=== PATIENT | female | born 1945 | race Caucasian/White ===

== ENCOUNTER 2022-07-18 13:11 | Observation (INO) ==
[2022-07-18] MEDS ORDERED: Tdap (Boostrix) Vaccine 0.5 ML SYRINGE IM ONE (13:40)
[2022-07-18] MEDS ORDERED: *HR* FentaNYL (PF) 100 MCG/2 ML VIAL IVP ONE ×2 (13:49→16:36)
[2022-07-18] MEDS ORDERED: Ondansetron 4 MG/2 ML VIAL IVP ONE ×3 (13:49→16:36)
[2022-07-18] MEDS: 0.9 % Sodium Chloride 1,000 ML IVC SCH ×2 (14:11→20:25)
[2022-07-18] MEDS ORDERED: hydroCHLOROthiazide 25 MG TABLET PO ONE (15:00)
[2022-07-18 15:59] LABS: Basophils # 0.1 K/mcL (0.0-0.2); Basophils % 1.4 %; Eosinophils # 0.2 K/mcL (0.0-0.6); Eosinophils % 2.5 %; Hematocrit 38.5 % (35.3-44.9); Hemoglobin 13.1 g/dL (11.5-15.4); Immature Granulocytes % 0.3 % (0-4); Lymphocytes # 2.2 K/mcL (0.6-4.6); Lymphocytes % 30.1 %; Mean Corpuscular Hemoglobin 29.4 pg (28.0-33.3); Mean Corpuscular Volume 86.3 fL (83.0-100.0); Mean Platelet Volume 10.3 fL (9.4-12.4); Monocytes # 0.5 K/mcL (0.0-1.3); Monocytes % 6.2 %; Neutrophils # 4.3 K/mcL (1.6-8.9); Platelet Count 234 K/mcL (140-400); Red Blood Count 4.46 M/mcL (3.82-4.97); Red Cell Distribution Width 12.7 % (11.5-14.5); Segmented Neutrophils % 59.5 %; White Blood Count 7.2 K/mcL (4.3-11.1)
[2022-07-18 16:08] LABS: Calcium 9.7 mg/dL (8.6-10.3); Potassium 3.8 mEq/L (3.5-5.1)
[2022-07-18 16:29] LABS: Magnesium 1.6 mg/dL (1.6-2.6)
[2022-07-18 16:42] LABS: Thyroid Stimulating Hormone 2.982 mcIU/mL (0.340-5.600)
[2022-07-18] MEDS ORDERED: Naloxone 0.4 MG/ML INJ IVP PRN (18:06)
[2022-07-18] MEDS ORDERED: *HR* LORazepam 2 MG/ML VIAL IVP ONE (18:31)
[2022-07-18] MEDS: Pantoprazole 40 MG VIAL IVP SCH (19:36)
[2022-07-18] MEDS ORDERED: Ondansetron 4 MG/2 ML VIAL IVP PRN (21:20)
[2022-07-19] MEDS: 0.9 % Sodium Chloride 1,000 ML IVC SCH ×2 (05:46→14:59)
[2022-07-19 06:03] LABS: Basophils # 0.1 K/mcL (0.0-0.2); Basophils % 0.5 %; Eosinophils % 0.2 %; Hemoglobin 12.1 g/dL (11.5-15.4); Immature Granulocytes % 0.4 % (0-4); Lymphocytes # 1.5 K/mcL (0.6-4.6); Lymphocytes % 14.9 %; Mean Corpuscular HGB Conc 33.6 g/dL (31.6-35.5); Mean Corpuscular Hemoglobin 29.4 pg (28.0-33.3); Mean Corpuscular Volume 87.6 fL (83.0-100.0); Mean Platelet Volume 10.1 fL (9.4-12.4); Monocytes # 0.6 K/mcL (0.0-1.3); Monocytes % 5.7 %; Neutrophils # 7.8 K/mcL (1.6-8.9); Platelet Count 221 K/mcL (140-400); Red Blood Count 4.11 M/mcL (3.82-4.97); Red Cell Distribution Width 12.6 % (11.5-14.5); Segmented Neutrophils % 78.3 %
[2022-07-19 06:22] LABS: Calcium 9.2 mg/dL (8.6-10.3); Potassium 3.7 mEq/L (3.5-5.1)
[2022-07-19] MEDS: Pantoprazole 40 MG VIAL IVP SCH (08:34)
[2022-07-19] MEDS: hydroCHLOROthiazide 25 MG TABLET PO SCH (08:34)
[2022-07-19] MEDS: amLODIPine 5 MG TABLET PO SCH (08:35)
[2022-07-19] MEDS: Acetaminophen 325 MG TABLET PO PRN (17:22)
[2022-07-20] MEDS: 0.9 % Sodium Chloride 1,000 ML IVC SCH ×2 (00:30→05:21)
[2022-07-20 07:45] VITALS: BP 139/72; PULSE 61; TEMP 97.9; O2SAT 96
[2022-07-20] MEDS ORDERED: Aspirin Enteric Coated 81 MG Tablet PO SCH (10:00)
[2022-07-20] MEDS ORDERED: Carbidopa/Levodopa 25/100 TABLET PO SCH (10:00)
[2022-07-20] MEDS: amLODIPine 5 MG TABLET PO SCH (10:08)
[2022-07-20] MEDS: hydroCHLOROthiazide 25 MG TABLET PO SCH (10:08)
[2022-07-20] MEDS: Pantoprazole 40 MG VIAL IVP SCH (10:09)
[2022-07-20] MEDS: Acetaminophen 325 MG TABLET PO PRN (10:14)
== END 2022-07-20 13:17 | disposition home or self-care (01) ==
LOC: 3BNU 13:11 → EMEROOARM 13:11 → SUATTDRO 17:27 → 3BNU 17:31
PROVIDERS: ADMIT Internal Medicine; ATTEND Internal Medicine